=== PATIENT | female | born 1990 | race Caucasian/White ===

== ENCOUNTER 2016-08-02 18:02 | Outpatient (CLI) | payer OTHER ==
[~2016-08-02] VITALS: Ht 157.5 cm; Wt 65.6 kg
[2016-08-02 18:20] VITALS: Ht 157.5 cm; Wt 65.6 kg
[2016-08-02] MEDS ORDERED: FERR325C PO (18:20)
[2016-08-02] MEDS ORDERED: PRENAT PO (18:20)
[2016-08-02 18:21] VITALS: BP 113/62; PULSE 77; RESP 18
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
[2016-08-02] MEDS ORDERED: ACETAMINOPHEN 500 MG TAB PO STA (19:19)
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
== END 2016-08-02 22:29 | disposition home or self-care (01) ==
LOC: OBT 18:02 → L-D 18:03 → OBT 22:29
PROVIDERS: ATTEND Specialist
DX: O9A.212 Injury, poisoning and certain other consequences of external causes complicating pregnancy, second trimester (principal); R51 Headache; V49.40XA Driver injured in collision with unspecified motor vehicles in traffic accident, initial encounter; Y92.410 Unspecified street and highway as the place of occurrence of the external cause; Z3A.25 25 weeks gestation of pregnancy
CPT/HCPCS: 76815; 86900; 86901; Z7500; Z7610; G0463

== ENCOUNTER 2016-09-27 11:32 | Inpatient (IN) | payer OTHER ==
[~2016-09-27] VITALS: Ht 157.5 cm; Wt 69.6 kg
[~2016-09-27 11:32] MED LIST: FERR325C PO; PRENAT PO
[2016-09-27 12:01] VITALS: Ht 157.5 cm; Wt 69.6 kg
[2016-09-27 13:12] LABS: ADD UMIC YES; URINE BILIRUBIN (Dip) NEGATIVE (NEGATIVE); URINE BLOOD (Dip) NEGATIVE (NEGATIVE); URINE COLOR LT. YELLOW (YELLOW); URINE GLUCOSE (Dip) NEGATIVE (NEGATIVE); URINE KETONES (Dip) NEGATIVE (NEGATIVE); URINE LEUKOCYTE ESTERASE (Dip) 1+ (NEGATIVE); URINE NITRITE (Dip) NEGATIVE (NEGATIVE); URINE TOTAL PROTEIN (Dip) NEGATIVE (NEGATIVE); URINE UROBILINOGEN (Dip) 0.2 E.U./dL (0.1-1.0)
[2016-09-27 13:29] LABS: BACTERIA,URINE MANY; URINE RBCS 0-2 /HPF (0)
--- NOTE | 2016-09-27 13:46 | RADRPT ---
PROCEDURE: Limited obstetric ultrasound CLINICAL INDICATION: Pain , PTL TECHNIQUE: Multiple transverse and longitudinal grayscale images of the pelvis were obtained prasad sabdominally and transvaginally.. COMPARISON: 08/02/16 FINDINGS: The cervix is closed with a length of 4.1 cm. There is a single viable intrauterine gestation. Cardiac activity is present with 129 beats per min [place]. There is a vertex presentation. The placenta is anterior. There is no evidence for an abruption or placenta previa. RPTAT: AA IMPRESSION: Cervix length measures 4.1 cm. .Rj Arias MD, MD Date Time Electronically viewed and signed by .Rj Arias MD, on 09/27/2016 13:45 .S/
[2016-09-27] MEDS ORDERED: NIFEdipine (XL) 60 MG TAB PO ONE (14:00)
[2016-09-27] MEDS ORDERED: LACTATED RINGER'S 1,000 ML IV SCH (15:30)
[2016-09-27] MEDS ORDERED: MAGNESIUM SULFATE 4 GM/100 ML 100 ML IV ONE (17:00)
[2016-09-27] MEDS ORDERED: morphine 4 MG/ML VIAL IV PRN (17:00)
[2016-09-27] MEDS: LACTATED RINGER'S 1,000 ML IV SCH (17:15)
[2016-09-27] MEDS: BETAMET NA PHOS/AC(6 MG/ML) 5ML INJ IM SCH (17:20)
[2016-09-27] MEDS: ACETAMINOPHEN 325 MG TAB PO PRN (17:34)
[2016-09-27] MEDS: AMPICILLIN 2 GM/NS (PMX) 100 ML IV SCH ×2 (17:35→23:55)
[2016-09-27] MEDS: MAGNESIUM SULFATE 20 GM/500 ML 500 ML IV SCH (17:48)
--- NOTE | 2016-09-27 18:12 | CONS ---
Date/Time of Note Date/Time of Note DATE: 09/27/16 TIME: 18:00 Consultation Date/Type/Reason Admit Date/Time Sep 27, 2016 at 16:08 Initial Consult Date OB triage note and history and physical Type of Consultation: OB consult. History and physi Reason for Consultation Premature contraction and abdominal pain 24 HR Interval Summary Free Text/Dictation This patient is a 26 years old 1 para 0 November 08 which makes her 33 weeks and 3 days She came to obstetrical triage complaining of abdominal pain and intermittent contractions On examination she is a well-developed well-nourished l Current Medications Medications (Trade) Dose Ordered Sig/Haylie Route PRN Reason Start Time Stop Time Status Last Admin Dose Admin Nifedipine 60 mg 60 mg ONCE ONCE PO 09/27/16 14:00 09/27/16 14:01 DC 09/27/16 13:23 Lactated Ringer's 1,000 ml @ 125 mls/hr Q8H IV 09/27/16 15:30 09/27/16 17:00 DC Lactated Ringer's 1,000 ml @ 75 mls/hr [id number] IV 09/27/16 16:55 09/28/16 17:07 DC 09/28/16 11:11 Magnesium Sulfate 100 ml @ 200 mls/hr ONCE ONCE IV 09/27/16 17:00 09/27/16 17:29 DC 09/27/16 17:16 Magnesium Sulfate (Magnesium Sulfate 20 Gm/500 ml) 500 ml @ 50 mls/hr Q10H IV 09/27/16 16:55 09/28/16 17:07 DC 09/28/16 13:58 Betamethasone Acet/Betameth SodPhos 12 mg 12 mg Q24H IM 09/27/16 17:00 09/28/16 17:01 DC 09/28/16 17:20 Ampicillin (Ampicillin 2 Gm/ NS (Pmx)) 100 ml @ 100 mls/hr Q6 IV 09/27/16 18:00 09/28/16 17:07 DC 09/28/16 12:07 Morphine Sulfate (morphine) 4 mg Q2 PRN IV PAIN LEVEL 6-10 09/27/16 17:00 Prenat Multivit/ [place]/Iron/Folic Ac ( S) 1 tab DAILY PO 09/28/16 09:00 3/11/17 08:43 Acetaminophen (Tylenol Tab) 650 mg Q6H PRN PO PAIN AND OR ELEVATED TEMP 09/27/16 17:30 09/27/16 17:34 Ferrous Sulfate (Ferrous Sulfate (Ec)) 325 mg BID PO 09/29/16 09:00 09/29/16 08:43 Nifedipine (Procardia) 20 mg Q6 PO 09/29/16 12:00 09/29/16 11:08 Nifedipine (Procardia) 20 mg Q6 PO 09/29/16 12:00 Cancel nacho Vital signs are stable blood pressure 115/65 pulse rate 75 respiration 18 temperature 98.1 saturation was 96.2 total Her ear nose throat appears to be normal Neck no neck vein distention no thyromegaly No lymph node enlargement anywhere in the body Chest is clear to auscultation or percussion Heart normal sinus rhythm no murmur Breasts are soft free of masses nipples are intact Abdomen is soft she does have occasional contraction which was becoming closer together heart tone is normal with fairly good variability and accelerations Extremities are normal no edema no varicosities knee jerk reflexes +1+ Pelvic examination vulva and vagina normal cervix was closed number head holding the pelvis No evidence of rupture of membrane bleeding Constitutional: No chills, No diaphoresis, No disoriented, No febrile, No improved, No no complaints, No other, No poor po, No requiring IVF, No requiring O2 Detailed Summary Eyes: pain (About 6 and a scale of 10) ENT: No bleeding, No congestion, No discharge, No dysphagia, No no complaints, No other, No pain, No sore throat Respiratory: No cough, No no complaints, No other, No pain, No pleuritic pain, No shortness of breath, No sputum, No wheezing Cardiovascular: No chest pain, No edema, No lightheadedness, No no complaints, No orthopenea, No other, No palpitations, No paroxysmal nocturnal dyspnea Gastrointestinal: No blood, No constipation, No decreased appetite, No diarrhea , No flatus, No nausea, No no complaints, No other, No pain, No passing stool, No vomiting Genitourinary: other (As I mentioned cervix was closed thick head was high no evidence of rupture of membranes), No bleeding, No discharge, No dysuria, No flank pain, No hematuria, No no complaints Musculoskeletal: No back pain, No bone/joint pain, No neck pain, No no complaints, No other, No restricted range of motion, No swelling Skin: No bruising, No erythema, No laceration, No no complaints, No other, No pruritis, No rash, No skin lesions Neurologic: No confusion, No dizziness, No focal-weakness, No headache, No no complaints, No other, No seizure, No syncope Endocrine: No dry skin, No no complaints, No other, No polydypsia, No polyuria , No temp intolerance Lymphatic: No adenopathy, No lymphadema, No no complaints, No other, No tender nodes Additional Comments FF and was negative ultrasound cervical length was reported as 4.1 cm Hydration was performed due to continuation of terbutaline given cross Procardia 60 mg Eventually due to continue external global contraction she was admitted in the hospital for further evaluation and prevention of her premature delivery Exam/Review of Systems Results Results 24 hrs Laboratory Tests Test 09/27/16 12:40 09/27/16 12:50 Urine Bacteria MANY Urine Bilirubin NEGATIVE Urine Clarity CLEAR Urine Color LT. YELLOW Urine Epithelial Cells FEW Urine Glucose NEGATIVE Urine Hemoglobin NEGATIVE Urine Ketones NEGATIVE Urine Leukocyte Esterase 1+ H Urine Microscopic RBC 0-2 Urine Microscopic WBC 2-5 Urine Nitrite NEGATIVE Urine Specific [place] 1.010 Urine Total Protein NEGATIVE Urine Urobilinogen 0.2 E.U./dL Urine pH 7.5 Fibronectin NEGATIVE Medications Medications Current Medications Lactated Ringer's 1,000 ml @ 75 mls/hr [id number] IV Last administered on 17:15; Admin Dose 75 MLS/HR; Start 09/27/16 at 16:55 Magnesium Sulfate (Magnesium Sulfate 20 Gm/500 ml) 500 ml @ 50 mls/hr Q10H IV Last administered on 09/27/16 17:48; Admin Dose 50 MLS/HR; Start 09/27/16 at 16: 55 Betamethasone Acet/Betameth SodPhos 12 mg 12 mg Q24H IM Last administered on 17:20; Admin Dose 12 MG; Start 09/27/16 at 17:00; Stop 09/28/16 at 17:01 Ampicillin (Ampicillin 2 Gm/ NS (Pmx)) 100 ml @ 100 mls/hr Q6 IV Last administered on 09/27/16 17:35; Admin Dose 100 MLS/HR; Start 09/27/16 at 18:00 Morphine Sulfate (morphine) 4 mg Q2 PRN IV PAIN LEVEL 6-10; Start 09/27/16 at 17 :00 Prenat Multivit/ [place]/Iron/Folic Ac ( S) 1 tab DAILY PO ; Start at 09:00 Acetaminophen (Tylenol Tab) 650 mg Q6H PRN PO PAIN AND OR ELEVATED TEMP Last administered on 09/27/16t 17:34; Admin Dose 650 MG; Start 09/27/16 at 17:30 BASSEM ABBOTT MD Sep 27, 2016 18:10
[2016-09-27 19:21] LABS: ADD SCAN DIFF NO
[2016-09-27 19:36] LABS: BASOPHILS % 0.1 % (0.0-2.0); EOSINOPHILS # 0.1 10^3/ul (0.0-0.5); EOSINOPHILS % 0.6 % (0.0-7.0); HEMATOCRIT 32.5 % (37.0-47.0); HEMOGLOBIN 10.9 g/dl (12.0-16.0); LYMPHOCYTES # 1.3 10^3/ul (0.8-2.9); LYMPHOCYTES % 8.5 % (15.0-51.0); MEAN CORPUSCULAR HEMOGLOBIN 31.2 pg (29.0-33.0); MEAN CORPUSCULAR HGB CONC 33.5 g/dl (32.0-37.0); MEAN CORPUSCULAR VOLUME 93.1 fl (82.0-101.0); MONOCYTE # 0.5 10^3/ul (0.3-0.9); MONOCYTES % 3.7 % (0.0-11.0); NEUTROPHIL # 12.8 10^3/ul (1.6-7.5); NEUTROPHILS % 86.4 % (39.0-77.0); PLATELET COUNT 202 10^3/UL (140-415); RED BLOOD COUNT 3.49 10^6/ul (4.20-5.40); RED CELL DISTRIBUTION WIDTH 13.4 % (11.5-14.5); WHITE BLOOD COUNT 14.8 10^3/ul (4.8-10.8)
[2016-09-27 20:09] LABS: ALBUMIN 3.1 g/dl (3.3-4.9)
[2016-09-27 20:10] LABS: POTASSIUM 3.3 mmol/L (3.5-5.1)
[2016-09-27 20:12] LABS: BILIRUBIN,INDIRECT 0.1 mg/dl (0-1.1); BILIRUBIN,TOTAL 0.1 mg/dl (0.2-1.3); CREATININE 0.3 mg/dl (0.44-1.00)
[2016-09-27 20:13] LABS: ALBUMIN/GLOBULIN RATIO 1.19; CALCIUM 7.9 mg/dl (8.4-10.2); TOTAL PROTEIN 5.7 g/dl (6.1-8.1)
[2016-09-28] MEDS: MAGNESIUM SULFATE 20 GM/500 ML 500 ML IV SCH ×2 (04:00→13:58)
[2016-09-28] MEDS: AMPICILLIN 2 GM/NS (PMX) 100 ML IV SCH ×2 (05:54→12:07)
[2016-09-28] MEDS: LACTATED RINGER'S 1,000 ML IV SCH ×2 (06:15→11:11)
[2016-09-28] MEDS: MULTIVIT/MIN/FOLATE/IRON/PREN TAB PO SCH (08:28)
[2016-09-28] MEDS: BETAMET NA PHOS/AC(6 MG/ML) 5ML INJ IM SCH (17:20)
--- NOTE | 2016-09-29 05:34 | CONS ---
DATE OF ADMISSION: 09/27/2016 DATE OF CONSULTATION: 09/28/2016 The patient is a 26-year-old lady who presented with 33-1/2 weeks with uterine contractions. The patient had been admitted. Today, the patient is doing well, no complaints. PHYSICAL EXAMINATION VITAL SIGNS: Stable. Category 1 tracing. ASSESSMENT: had been negative, was 4 cm. Plan: Per Dr. Lujan's orders, patient will be taken off the magnesium. The patient is to cont inue her betamethasone tonight. Possible discharge in the morning, if stable. Dictated By: KELLY OSPINA MD /NTS Conf#: [id number] DID#: [id number]
[2016-09-29] MEDS: MULTIVIT/MIN/FOLATE/IRON/PREN TAB PO SCH (08:43)
[2016-09-29] MEDS: FERROUS SULFATE (EC) 325 MG TAB PO SCH ×2 (08:43→21:03)
--- NOTE | 2016-09-29 10:17 | PN ---
Date/Time of Note Date/Time of Note DATE: 09/29/16 TIME: 10:14 OB Subjective Subjective Subjective This is a 26 years old female was admitted to the hospital at 33 weeks and 3 days for possible labor at first she was treated with magnesium sulfate which discontinued 24 hours later, still has occasional contraction which mostly not felt she is being placed on Procardia 20 mg every 6 hours and will continue expecting management' MARIA EUGENIA MAYER MD Sep 29, 2016 10:17
[2016-09-29] MEDS: NIFEdipine 10 MG CAP PO SCH ×3 (11:08→23:45)
[2016-09-29] MEDS ORDERED: NIFEdipine 10 MG CAP PO SCH (12:00)
[2016-09-29] MEDS ORDERED: AL HYDROX/MG HYDROX/SIMETH 30 ML CUP PO PRN (14:30)
[2016-09-30] MEDS: NIFEdipine 10 MG CAP PO SCH ×2 (05:58→11:41)
[2016-09-30] MEDS: ACETAMINOPHEN 325 MG TAB PO PRN (07:38)
[2016-09-30] MEDS: MULTIVIT/MIN/FOLATE/IRON/PREN TAB PO SCH (08:49)
[2016-09-30] MEDS: FERROUS SULFATE (EC) 325 MG TAB PO SCH (08:49)
--- NOTE | 2016-09-30 16:16 | PD.PPDC ---
[employer] Discharge Instruction Condition Patient Condition: Stable Diet Diet: Resume Regular Diet Activity/Restrictions Restrictions: No Exercising No Sexual Activity Nothing in the Vagina No Speculator No Tampons, douche Follow-up Follow-up with Physician: 3, Day/Days KELLY OSPINA MD Sep 30, 2016 16:16
== END 2016-09-30 16:30 | disposition home or self-care (01) | DRG 778 ==
LOC: OBT 11:32 → L-D 11:33 → OBT 16:05 → OBG 16:08
PROVIDERS: ADMIT Specialist; ATTEND Specialist
DX: O60.03 Preterm labor without delivery, third trimester (principal); Z3A.33 33 weeks gestation of pregnancy
CPT/HCPCS: 36415; 76817; 80053; 81001; 81003; 82731; 83735; 85025; 87081; 87086; 87591; 96360; G0463; J0290; J0702; J3475; J7120